=== PATIENT | male | born 1960 ===

== ENCOUNTER 2016-09-17 09:05 | Emergency (ER) | payer BC ==
[2016-09-17 09:34] VITALS: BP 123/75
--- NOTE | 2016-09-17 09:34 | UC ---
Neck Pain HPI - HPI Summary HPI Summary: posterior neck pain x 1 day no know injury , pain is at the right posterior neck , no radiation of the pain , pain is sever , worse with neck movement no tingling or numbness in the upper ext. - History of Current Complaint Chief Complaint: UCGeneralIllness Stated Complaint: NECK COMPLAINT Time Seen by Provider: 09/17/16 09:23 Hx Obtained From: Patient Onset/Duration Of Injury/Symptoms: Days - 1 Mechanism Of Injury: No Known Trauma Timing: Constant Onset/Duration: Gradual Onset, Lasting Days - 1, Still Present Severity: Severe Location: Discrete At: - posterior neck Character: Sharp, Spasmotic Aggravating Factors: Movement Alleviating Factors: Ice Associated Signs & Symptoms: Negative: Swelling, Redness, Bruising, Fever, Nuchal Rigity, Weakness, Headache, Paresthesia - Allergies/Home Medications Allergies/Adverse Reactions: Allergies Allergy/AdvReac Type Severity Reaction Status Date / Time No Known Allergies Allergy Verified 09/17/16 09:17 Home Medications: Home Medications Aspirin [Aspirin 81 MG TAB] 81 mg PO DAILY 09/17/16 [History Confirmed 09/17/16] Atorvastatin* [Lipitor*] 10 mg PO DAILY 09/17/16 [History Confirmed 09/17/16] Ramipril CAP* [Altace CAP*] 5 mg PO DAILY 09/17/16 [History Confirmed 09/17/16] PMH/Surg Hx/FS Hx/Imm Hx Previously Healthy: Yes - Surgical History Surgical History: Yes Surgery Procedure, Year, and Place: Cardiac stents 02/2016 - Family History Known Family History: Negative: Diabetes - Social History Alcohol Use: Occasionally Substance Use Type: None Smoking Status (MU): Never Smoked Tobacco Review Of Systems Constitutional: Positive: Negative Skin: Positive: Negative Eyes: Positive: Negative ENT: Positive: Negative Respiratory: Positive: Negative All Other Systems Reviewed And Are Negative: Yes Physical Exam Triage Information Reviewed: Yes Appearance: Well-Appearing, Well-Nourished, Pain Distress Vital Signs: Initial Vital Signs Temp 97.8 F 09/17/16 09:08 Pulse 62 09/17/16 09:08 Resp 14 09/17/16 09:08 BP 123/75 09/17/16 09:08 Pulse Ox 98 09/17/16 09:08 Vital Signs Reviewed: Yes Eyes: Positive: Conjunctiva Clear ENT: Positive: Normal ENT inspection, Hearing grossly normal, Pharynx normal Neck: Positive: Tenderness @ - postrior neck, Other: - limited ROM on flexion and rotation Respiratory: Positive: Chest non-tender, Lungs clear, Normal breath sounds Cardiovascular: Positive: RRR, No Murmur, Pulses Normal Skin Exam: Normal Neck Pain Course/Dx - Differential Dx/Diagnosis Provider Diagnoses: neck strain Discharge - Discharge Plan Condition: Stable Disposition: HOME Prescriptions: Cyclobenzaprine TAB* [Flexeril 10 MG TAB*] 10 mg PO BID #20 tab Naproxen [Naproxen EC 500 MG TAB] 500 mg PO BID #20 tab Patient Education Materials: Acute Neck Pain (ED) Referrals: Jabier Hills MD [Primary Care Provider] - 7 Days
== END 2016-09-17 09:43 | disposition home or self-care (01) ==
LOC: UCCORT 09:05
DX: S16.1XXA Strain of muscle, fascia and tendon at neck level, initial encounter (principal); X58.XXXA Exposure to other specified factors, initial encounter; Y92.9 Unspecified place or not applicable; Z79.82 Long term (current) use of aspirin
CPT/HCPCS: 99212; G0463